=== PATIENT | male | born 1970 | race African-American/Black ===

== ENCOUNTER 2016-10-22 12:49 | Emergency (ER) | payer SELFPAY ==
[~2016-10-22] VITALS: Ht 182.9 cm; Wt 80.0 kg
[2016-10-22 12:52] VITALS: BP 116/65; PULSE 89; RESP 16; TEMP 98.7; O2SAT 99
[2016-10-22 13:10] VITALS: O2SAT 96
[2016-10-22] MEDS: SODIUM CHLORIDE 0.9% FLUSH 10 ML FLUSH IV FLUSH PRN ×2 (13:12→13:37)
[2016-10-22] MEDS ORDERED: SODIUM CHLOR 0.9% 1000 ML INJ 1,000 ML IV SCH ×2 (13:20→14:26)
--- NOTE | 2016-10-22 13:22 | PD ---
HPI Chief Complaint: GI Complaint Time Seen by Provider: 13:21 Travel History International Travel<30 days: No Contact w/Intl Traveler<30days: No Traveled to known affect area: No History of Present Illness HPI 46-year-old male presents to the emergency department for evaluation of sore throat and possible dehydration. The patient states that he began to have a sore throat 2 days ago. States that the pain in his throat has been so severe that he's been unable to eat or drink anything. States that this morning he woke up and had several episodes of nonbloody diarrhea. States that he feels as though he is dehydrated, states his urine is dark. Complains of subjective fever and chills. Denies any chest pain, shortness of breath, nasal congestion , runny nose, cough, abdominal pain, vomiting. Denies any medical conditions. Denies any recent travel or sick contacts. No other complaints. PFSH Past Medical History Diminished Hearing: No Immunizations Current: Yes Tetanus Vaccination: Unknown Influenza Vaccination: No Social History Alcohol Use: Yes (socially) Tobacco Use: Yes (1 pack q3d) Substance Use: No Allergies-Medications (Allergen,Severity, Reaction): Coded Allergies: No Known Allergies (Unverified , 10/22/16) Reported Meds & Prescriptions Reported Meds & Active Scripts Active No Active Prescriptions or Reported Medications Review of Systems Except as stated in HPI: all other systems reviewed are Neg Physical Exam Narrative GENERAL: Well-nourished and well-developed pleasant male patient in no acute distress who is nontoxic appearing. SKIN: Warm and dry. HEAD: Normocephalic and atraumatic. EYES: No injection, drainage, or hyphema noted. PERRLA. EOMI. ENT: No nasal drainage noted. Oropharynx is erythematous with exudates bilaterally. No pharyngeal deviation. TMs are normal with good landmarks. NECK: Supple and the trachea is midline. Positive anterior cervical lymphadenopathy. CARDIOVASCULAR: Regular rate and rhythm. RESPIRATORY: Breath sounds are equal bilaterally with no accessory muscle use, wheezing, rhonchi, or crackles. GASTROINTESTINAL: Abdomen is soft, non-tender, and nondistended. MUSCULOSKELETAL: No obvious deformities, swelling, cyanosis, or ecchymosis is present throughout the upper and lower extremities. Patient has full range of motion without any signs of neurovascular compromise. NEUROLOGICAL: Awake, alert, and oriented. Normal speech and gait. Cranial nerves are grossly intact. Data Data Last Documented VS Vital Signs Date Time Temp Pulse Resp B/P Pulse Ox O2 Delivery O2 Flow Rate FiO2 10/22/16 13:10 96 Room Air 10/22/16 12:52 98.7 89 16 116/65 Orders Urinalysis - C+S If Indicated (10/22/16 13:04) Complete Blood Count With Diff (10/22/16 13:04) Comprehensive Metabolic Panel (10/22/16 13:04) Lipase (10/22/16 13:04) Iv Access Insert/Monitor (10/22/16 13:04) Oximetry (10/22/16 13:04) Sodium Chloride 0.9% Flush (Ns Flush) (10/22/16 13:15) Group A Rapid Strep Screen (10/22/16 13:20) Influenzae A/B Antigen (10/22/16 13:20) Sodium Chlor 0.9% 1000 Ml Inj (Ns 1000 M (10/22/16 13:20) Ketorolac Inj (Toradol Inj) (10/22/16 14:30) Sodium Chlor 0.9% 1000 Ml Inj (Ns 1000 M (10/22/16 14:26) Labs Laboratory Tests Test 10/22/16 13:00 White Blood Count 10.2 TH/MM3 Red Blood Count 5.48 MIL/MM3 Hemoglobin 14.5 GM/DL Hematocrit 44.7 % Mean Corpuscular Volume 81.6 FL Mean Corpuscular Hemoglobin 26.5 PG Mean Corpuscular Hemoglobin 32.5 % Concent Red Cell Distribution Width 13.5 % Platelet Count 145 TH/MM3 Mean Platelet Volume 8.8 FL Neutrophils (%) (Auto) 68.7 % Lymphocytes (%) (Auto) 13.1 % Monocytes (%) (Auto) 17.6 % Eosinophils (%) (Auto) 0.1 % Basophils (%) (Auto) 0.5 % Neutrophils # (Auto) 7.0 TH/MM3 Lymphocytes # (Auto) 1.3 TH/MM3 Monocytes # (Auto) 1.8 TH/MM3 Eosinophils # (Auto) 0.0 TH/MM3 Basophils # (Auto) 0.0 TH/MM3 CBC Comment AUTO DIFF Urine Color YELLOW Urine Turbidity CLEAR Urine pH 6.0 Urine Specific [place] 1.016 Urine Protein 100 mg/dL Urine Glucose (UA) NEG mg/dL Urine Ketones 10 mg/dL Urine Occult Blood SMALL Urine Nitrite NEG Urine Bilirubin NEG Urine Urobilinogen LESS THAN 2.0 MG/DL Urine Leukocyte Esterase NEG Urine RBC 1 /hpf Urine WBC 4 /hpf Urine Squamous Epithelial <1 /hpf Cells Urine Hyaline Casts 1 /lpf Urine Mucus FEW /lpf Microscopic Urinalysis Comment CULT NOT INDICATED Sodium Level 133 MEQ/L Potassium Level 3.7 MEQ/L Chloride Level 97 MEQ/L Carbon Dioxide Level 24.9 MEQ/L Anion Gap 11 MEQ/L Blood Urea Nitrogen 12 MG/DL Creatinine 1.38 MG/DL Estimat Glomerular Filtration 67 ML/MIN Rate Random Glucose 100 MG/DL Calcium Level 9.5 MG/DL Total Bilirubin 0.5 MG/DL Aspartate Amino Transf 19 U/L (AST/SGOT) Alanine Aminotransferase 16 U/L (ALT/SGPT) Alkaline Phosphatase 82 U/L Total Protein 8.2 GM/DL Albumin 3.3 GM/DL Lipase 97 U/L [facility] Medical Decision Making Medical Screen Exam Complete: Yes Emergency Medical Condition: Yes Differential Diagnosis Strep throat versus influenza versus viral illness versus dehydration versus fungal infection Narrative Course 46-year-old male presents to the emergency department for evaluation of sore throat and dehydration. Patient is afebrile, vital signs are stable. On physical examination he does have an erythematous oropharynx with exudates. Otherwise physical examination is unremarkable. IV access obtained, labs were drawn and sent. Patient is administered IV fluids. CBC is unremarkable. CMP shows mild dehydration with a sodium of 133, creatinine 1.3, GFR 67. Urinalysis shows 100 protein, 10 ketones, small occult blood. Strep swab is positive. Influenza swab is negative. The patient has strep throat. He is administered IV fluids and Toradol 30 mg IV. He'll be discharged with amoxicillin and naproxen. Discussed supportive care and advised follow-up with his PCP as needed. Patient verbalizes understanding and agreement with treatment plan. Diagnosis Primary Impression: Strep pharyngitis Referrals: Primary Care Physician Patient Instructions: General Instructions, Strep Throat (ED) Additional Instructions: Rest. Gargle with salt water. Take medications as prescribed with food and a full glass of water. Follow-up with your Primary Care Physician. Return to the ED for any acute worsening of symptoms. Med/Other Pt SpecificInfo: Prescription(s) given Scripts Naproxen 500 Mg [id number] Mg PO BID 7 Days Ref 0 Prov:Keeley Maravilla MD 10/22/16 Amoxicillin 875 Mg [id number] Mg PO BID 10 Days Ref 0 Prov:Keeley Maravilla MD 10/22/16 Disposition: 01 DISCHARGE HOME Condition: Stable Kasandra Wilcox October 22, 2016 13:22
[2016-10-22 13:58] LABS: BASOPHIL % 0.5 % (0.0-2.0); EOSINOPHIL % 0.1 % (0.0-4.0); HEMATOCRIT 44.7 % (39.0-51.0); LYMPH % 13.1 % (9.0-44.0); LYMPHOCYTE # 1.3 TH/MM3 (1.0-4.8); MEAN CELL VOLUME 81.6 FL (80.0-100.0); MEAN CORPUSCULAR HEMOGLOBIN 26.5 PG (27.0-34.0); MEAN CORPUSCULAR HGB CONC 32.5 % (32.0-36.0); MONO % 17.6 % (0.0-8.0); NEUT % 68.7 % (16.0-70.0); PLATELET COUNT 145 TH/MM3 (150-450); RED BLOOD COUNT 5.48 MIL/MM3 (4.50-5.90); RED CELL DISTRIBUTION WIDTH 13.5 % (11.6-17.2); WHITE BLOOD COUNT 10.2 TH/MM3 (4.0-11.0)
[2016-10-22 13:59] LABS: HEMO FLAGS AUTO DIFF
[2016-10-22 14:06] LABS: BLOOD, URINE SMALL (NEG); GLUCOSE,URINE NEG (NEG); HYALINE CAST, URINE 1 /lpf (RARE); KETONE, URINE 10 mg/dL (NEG); MUCUS URINE FEW /lpf (OCC); NITRITE,URINE NEG (NEG); SQUAMOUS EPITHELIAL CELL URINE <1 /hpf (0-5); URINE COLOR YELLOW (YELLW/STRAW)
[2016-10-22 14:08] LABS: ALT (GPT) 16 U/L (12-78); ANION GAP 11 MEQ/L (5-15); AST (GOT) 19 U/L (15-37); BICARBONATE 24.9 MEQ/L (21.0-32.0); BLOOD UREA NITROGEN 12 MG/DL (7-18); CHLORIDE 97 MEQ/L (98-107); GLOMERULAR FILTRATION RATE 67 ML/MIN (>89); POTASSIUM 3.7 MEQ/L (3.5-5.1); SODIUM (NA) 133 MEQ/L (136-145)
[2016-10-22 14:09] LABS: COMMENT (UR) CULT NOT INDICATED; CULTURE IF INDICATED CULT NOT INDICATED
[2016-10-22 14:10] LABS: ALKALINE PHOSPHATASE 82 U/L (45-117); TOTAL BILIRUBIN ADULT 0.5 MG/DL (0.2-1.0)
[2016-10-22] MEDS ORDERED: AMOX875T PO (14:30)
[2016-10-22] MEDS ORDERED: KETOROLAC TROMETHAMINE 30 MG/ML (IVP) VIAL IV PUSH ONE (14:30)
[2016-10-22] MEDS ORDERED: NAPR500T PO (14:30)
[2016-10-22 14:31] LABS: BANDS 15 % (0-6); NEUTROPHIL # MANUAL DIFF 7.2 TH/MM3 (1.8-7.7); POLYS (SEG NEUTROPHILS) 56 % (16-70); WBC DIFF SAMPLE 100
[2016-10-22 14:32] LABS: PLATELET ESTIMATE SMEAR LOW (NORMAL); TOXIC VACUOLATION PRESENT (NONE SEEN)
[2016-10-22 14:33] LABS: PLATELET MORPHOLOGY NORMAL (NORMAL); SCAN/DIFF FINAL DIFF MANUAL
== END 2016-10-22 16:05 | disposition home or self-care (01) ==
LOC: NEPD 12:49
DX: J02.0 Streptococcal pharyngitis (principal); B95.0 Streptococcus, group A, as the cause of diseases classified elsewhere; F17.210 Nicotine dependence, cigarettes, uncomplicated
CPT/HCPCS: 80053; 81001; 83690; 85007; 85027; 87804; 87880; 96361; 96374; 99284; J1885; J7030